=== PATIENT | female | born 1970 | race Caucasian/White ===

== ENCOUNTER 2018-02-15 10:50 | Observation (INO) | payer OTHER ==
[~2018-02-15 10:50] MED LIST: CEFAZOLIN 1 GM/50 ML (PMX) 50 ML IVPB; SOD CHLORIDE 0.9% 1,000 ML IV
[2018-02-15 12:05] LABS: ADD MAN DIFF? NO
[2018-02-15 12:15] LABS: BASOPHILS % 0.5 % (0.0-2.0); EOSINOPHILS # 0.1 10^3/ul (0.0-0.5); EOSINOPHILS % 1.7 % (0.0-7.0); HEMATOCRIT 36.5 % (37.0-47.0); HEMOGLOBIN 12.4 g/dl (12.0-16.0); LYMPHOCYTES # 1.6 10^3/ul (0.8-2.9); LYMPHOCYTES % 27.3 % (15.0-51.0); MEAN CORPUSCULAR VOLUME 94.3 fl (82.0-101.0); MEAN PLATELET VOLUME 11.6 fl (7.4-10.4); MONOCYTE # 0.5 10^3/ul (0.3-0.9); MONOCYTES % 8.6 % (0.0-11.0); NEUTROPHIL # 3.6 10^3/ul (1.6-7.5); NEUTROPHILS % 61.6 % (39.0-77.0); PLATELET COUNT 210 10^3/UL (140-415); RED BLOOD COUNT 3.87 10^6/ul (4.20-5.40); RED CELL DISTRIBUTION WIDTH 12.2 % (11.5-14.5)
[2018-02-15 12:15] LABS: WHITE BLOOD COUNT 5.9 10^3/ul (4.8-10.8)
[2018-02-15] MEDS ORDERED: METOCLOPRAMIDE 10 MG INJ IV (12:30)
[2018-02-15] MEDS ORDERED: HYDROmorphONE 1 MG/5 ML IV SYRINGE IV (12:30)
[2018-02-15] MEDS ORDERED: ALBUTEROL 0.083% (NEB) 2.5 MG/3 ML AMP HHN (12:30)
[2018-02-15] MEDS ORDERED: DIPHENHYDRAMINE 50 MG INJ IV (12:30)
[2018-02-15] MEDS ORDERED: FENTAnyl 50 MCG/ML VIAL IV ×2 (12:30)
[2018-02-15 12:31] LABS: INR 0.95; PARTIAL THROMBOPLASTIN TIME 26.8 Sec (23.0-35.0); PROTIME 12.8 Sec (11.9-14.9)
[2018-02-15 12:33] LABS: ALANINE AMINOTRANSFERASE 20 IU/L (13-69); ALBUMIN 4.4 g/dl (3.3-4.9); ALBUMIN/GLOBULIN RATIO 1.33; ALKALINE PHOSPHATASE 93 IU/L (42-121); ANION GAP 9 (5-13); ASPARTATE AMINO TRANSFERASE 27 IU/L (15-46); BILIRUBIN,INDIRECT 0.5 mg/dl (0-1.1); BILIRUBIN,TOTAL 0.5 mg/dl (0.2-1.3); BLOOD UREA NITROGEN 15 mg/dl (7-20); CALCIUM 9.5 mg/dl (8.4-10.2); CARBON DIOXIDE 25 mmol/L (21-31); CHLORIDE 107 mmol/L (97-110); CREATININE 0.55 mg/dl (0.44-1.00); Estimated GFR > 60 mL/min (>60); GLUCOSE 90 mg/dl (70-220); POTASSIUM 3.9 mmol/L (3.5-5.1); SODIUM 141 mmol/L (135-144); TOTAL PROTEIN 7.7 g/dl (6.1-8.1)
[2018-02-15] MEDS ORDERED: FENTAnyl 50 MCG/ML VIAL (12:55)
[2018-02-15] MEDS ORDERED: ROCURONIUM 50 MG INJ (13:15)
[2018-02-15] MEDS ORDERED: PROPOFOL 20 ML (13:15)
[2018-02-15] MEDS ORDERED: CEFAZOLIN 1 GM INJ (13:15)
[2018-02-15] MEDS ORDERED: SUCCINYLCHOLINE CHLORIDE 100 MG/5 ML SYG IV (13:15)
[2018-02-15] MEDS ORDERED: SUGAMMADEX SODIUM 200 MG/2 ML VIAL IV (13:15)
[2018-02-15] MEDS ORDERED: LIDOCAINE 100 MG SYRINGE (13:15)
[2018-02-15] MEDS ORDERED: ACETAMINOPHEN 1000MG/100ML IV 100 ML IVPB (14:30)
[2018-02-15] MEDS ORDERED: ONDANSETRON 4 MG INJ IV (14:30)
[2018-02-15] MEDS: MEPERIDINE 25 MG INJ IV (14:57)
[2018-02-15] MEDS: ONDANSETRON 4 MG INJ IV (14:58)
[2018-02-15] MEDS: HYDROmorphONE 1 MG/5 ML IV SYRINGE IV ×2 (15:12→15:18)
[2018-02-15] MEDS: morphine 2 MG INJ IV ×2 (16:20→22:30)
[2018-02-15] MEDS: D5W-0.45 NACL + KCL 20 MEQ 1,000 ML IV ×2 (16:24→22:18)
[2018-02-16] MEDS: D5W-0.45 NACL + KCL 20 MEQ 1,000 ML IV ×2 (00:34→14:18)
[2018-02-16] MEDS: morphine 2 MG INJ IV ×2 (09:37→17:36)
[2018-02-16] MEDS: HYDROCODONE/APAP (5/325) TAB PO (14:13)
== END 2018-02-16 18:43 | disposition home or self-care (01) ==
LOC: SDS 10:50 → REC 15:11 → MS1 16:48
DX: C50.912 Malignant neoplasm of unspecified site of left female breast (principal)
CPT/HCPCS: 19307; 80053; 85025; 85610; 85730; 88307